=== PATIENT | male | born 1965 | race Caucasian/White ===

== ENCOUNTER 2018-03-14 11:48 | Emergency (ER) | payer BC ==
[~2018-03-14 11:48] MED LIST: Iopamidol 370 76% 100 ML VIAL ONE
[2018-03-14] MEDS ORDERED: Metoclopramide HCl 10 MG/2 ML VIAL ONE (12:37)
[2018-03-14 12:58] LABS: Band 4 % (5-11); Eosinophils 3 % (0-10); Hemoglobin 17.9 g/dL (14.0-18.0); Lymphocytes 13 % (21-51); MDiff Complete? YES; Mean Corpuscular HGB CONC 35.8 g/dL (32.0-36.0); Mean Corpuscular Hemoglobin 33.7 pg (27.0-31.0); Mean Corpuscular Volume 94.2 fl (80.0-94.0); Mean Platelet Volume 7.6 fL (7.4-10.4); Monocytes 1 % (0-10); Neutrophil 73 % (42-75); PLT Morphology Comment Appears Adequate; Platelet Count 332 thou/uL (130-400); RBC Distribution Width 11.2 % (11.5-14.5); Reactive Lymphocytes 3 % (0-10)
--- NOTE | 2018-03-14 12:58 | CT ---
CT ABDOMEN AND PELVIS WITH IV CONTRAST: HISTORY: Abdominal pain. Nausea and vomiting. FINDINGS: Lung bases are clear. The liver, spleen, kidneys, adrenal glands, and pancreas are unremarkable. Ca lcification throughout the arterial structures. Urinary bladder incompletely distended. No evidence of bowel obstruction. Diverticula arise from the colon. Circumferential wall thickening of the upper sigmoid colon with stranding in the adjacent fat. No free air or free fluid. IMPRESSION: 1. Mild noncomplicated upper sigmoid diverticulitis. 2. Atherosclerosis. POS: RAISA
[2018-03-14 13:06] LABS: ALT (SGPT) 14 U/L (8-55); AST (SGOT) 12 U/L (5-34); Albumin 4.2 g/dL (3.5-5.0); Alkaline Phosphatase 83 U/L (40-150); Anion Gap 16 mmol/L (10-20); BUN (Urea Nitrogen) 11 mg/dL (8.4-25.7); Bilirubin, Total 0.6 mg/dL (0.2-1.2); CKMB 0.9 ng/mL (0-6.6); Calc. Creatinine Clearance 0 mL/min (70-130); Calcium 9.8 mg/dL (7.8-10.44); Carbon Dioxide 25 mmol/L (22-29); Chloride 105 mmol/L (98-107); Estimated GFR-MDRD Greater than 90; Globulin 2.9 g/dL (2.4-3.5); Glucose 132 mg/dL (70-105); Lipase 28 U/L (8-78); Potassium 3.9 mmol/L (3.5-5.1); Protein, Total 7.1 g/dL (6.0-8.3); Sodium 142 mmol/L (136-145); Troponin I Less than 0.010 ng/mL (< 0.028)
== END 2018-03-14 13:38 | disposition home or self-care (01) ==
LOC: SCSER 11:48
DX: K57.32 Diverticulitis of large intestine without perforation or abscess without bleeding (principal); F17.210 Nicotine dependence, cigarettes, uncomplicated
CPT/HCPCS: 74177; 80053; 82553; 83690; 84484; 85025; 93005; 96361; 96374; J2765